=== PATIENT | female | born 1935 | race Caucasian/White ===

== ENCOUNTER → 2016-10-11 | Outpatient (CLI) | payer MEDICARE | LOC: LAB 10:28 | PROVIDERS: ATTEND Family Medicine | DX: E78.2 Mixed hyperlipidemia (principal); M79.1 Myalgia; K71.2 Toxic liver disease with acute hepatitis; E03.4 Atrophy of thyroid (acquired); M81.0 Age-related osteoporosis without current pathological fracture | CPT/HCPCS: 36415; 80061; 82306; 82550; 82977; 84436; 84443 ==